=== PATIENT | female | born 1965 | race Caucasian/White ===

== ENCOUNTER 2019-10-14 09:45 | Emergency (ER) | payer MEDICAID, OTHER ==
[~2019-10-14] VITALS: Ht 170.2 cm; Wt 112.0 kg
[~2019-10-14 09:45] MED LIST: CLON-527 PO; ESOM20CA PO; LEVO100T46 PO; LISI-600 PO; PANT40TA39 PO; ZOF4T PO; ZOLP5TAB8 PO
--- NOTE | 2019-10-14 10:03 | NUR ---
received patient to ER overflow
--- NOTE | 2019-10-14 10:37 | NUR ---
MD at the bedside, patient stating all guns have been removed from the home and that she has been feeling suicidal for a few days
[2019-10-14 10:58] LABS: BASOPHILS # (AUTO) 0.1 X10'3 (0-0.2); BASOPHILS % (AUTO) 1.5 % (0-1); EOSINOPHILS # (AUTO) 0.1 X10'3 (0-0.9); EOSINOPHILS % (AUTO) 1.3 % (0-6); HEMATOCRIT 42.3 % (35.0-45.0); HEMOGLOBIN 14.4 g/dl (12.0-16.0); LYMPHOCYTES # (AUTO) 1.6 X10'3 (1.1-4.8); LYMPHOCYTES % (AUTO) 22.9 % (21-51); MEAN CORPUSCULAR HEMOGLOBIN 29.9 PG (27.0-31.0); MEAN CORPUSCULAR VOLUME 88.1 FL (78-98); MONOCYTES # (AUTO) 0.4 X10'3 (0-0.9); MONOCYTES % (AUTO) 5.7 % (2-12); NEUTROPHILS # (AUTO) 4.9 X10'3 (1.8-7.7); NEUTROPHILS % (AUTO) 68.6 % (42-75); PLATELET COUNT 380 X10'3 (140-440); RED BLOOD COUNT 4.81 X10'6 (4.20-5.60); RED CELL DISTRIBUTION WIDTH 13.5 % (11.5-14.5); WHITE BLOOD COUNT 7.1 X10'3 (4.5-11.0)
[2019-10-14] MEDS ORDERED: LORazepam 1 MG tablet PO ONE ×2 (11:05→19:20)
[2019-10-14 11:10] LABS: CLARITY,URINE CLOUDY (Clear); COLOR,URINE YELLOW (Yellow); GLUCOSE, URINE NEGATIVE (Neg); KETONES,URINE NEGATIVE (Neg); LEUKOCYTE ESTERASE ,URINE NEGATIVE (Neg); NITRITES, URINE NEGATIVE (Neg); OCCULT BLOOD,URINE TRACE-INTACT (Neg); PROTEIN,URINE NEGATIVE (Neg); UROBILINOGEN,URINE 0.2 E.U/dL (0.2-1.0)
[2019-10-14 11:12] LABS: URINE AMPHETAMINE SCREEN NEGATIVE (Neg); URINE BARBITUATE SCREEN NEGATIVE (Neg); URINE BENZODIAZEPINES SCREEN NEGATIVE (Neg); URINE CANNABINOID SCREEN NEGATIVE (Neg); URINE COCAINE SCREEN NEGATIVE (Neg); URINE METHADONE SCREEN NEGATIVE (Neg); URINE OPIATE SCREEN NEGATIVE (Neg); URINE PHENCYCLIDINE SCREEN NEGATIVE (Neg)
[2019-10-14 11:14] LABS: UA COLLECTION TYPE CLN CATCH MIDSTREAM
[2019-10-14 11:15] LABS: MUCUS STRANDS MANY /LPF (Neg); SQUAMOUS EPITHELIAL CELL,UR MANY /LPF (FEW)
[2019-10-14 11:15] LABS: ALANINE AMINOTRANSFERASE 109 U/L (12-78); ALBUMIN 4.1 G/DL (3.4-5.0); ALBUMIN/GLOBULIN RATIO 1.3 (1.1-1.5); ALKALINE PHOSPHATASE 111 IU/L (46-116); ANION GAP 6 (8-16); ASPARTATE AMINO TRANSFERASE 43 U/L (10-37); BILIRUBIN,TOTAL 0.5 MG/DL (0.1-1.0); BLOOD UREA NITROGEN 12 MG/DL (7-18); CALCIUM 9.6 MG/DL (8.5-10.1); CHLORIDE 108 MMOL/L (99-107); CREATININE 1.09 MG/DL (0.40-0.90); GLUCOSE 96 MG/DL (70-104); POTASSIUM 4.1 MMOL/L (3.5-5.1); SODIUM 140 MMOL/L (135-145); TOTAL CARBON DIOXIDE 26.3 MMOL/L (24-32); TOTAL PROTEIN 7.3 G/DL (6.4-8.2); eGFR 53 ML/MIN
[2019-10-14 11:16] LABS: BACTERIA,URINE 3+ /HPF (Neg); RBC,URINE 0-2 /HPF (0-2); WBC,URINE 0-4 /HPF (0-4)
--- NOTE | 2019-10-14 12:51 | NUR ---
SENT PACKET TO [facility]
--- NOTE | 2019-10-14 13:00 | NUR ---
pt resting no change
--- NOTE | 2019-10-14 17:55 | NUR ---
[facility] and will be picked up around 1944
--- NOTE | 2019-10-14 19:19 | NUR ---
Patient is awake and well oriented. Mid fowlers in bed, in view from nursing station. Patient speaks is a soft voice, she is complaing of much anxiety and depression. Patient answers questions directly and is cooperative with staff. Patient will be transported to [facility] in [place] at around 1745 hours. This group underwriter spoke with an ED PA, an order was recieved for Ativan 1mg PO. Patient is medication compliant.
[2019-10-14] MEDS ORDERED: acetaminophen 325mg tablet PO ONE (20:00)
--- NOTE | 2019-10-14 20:02 | NUR ---
[facility] is here to take patient to [facility] in [place]. This residential mortgage underwriter was checking vital signs. Patient noted to have Temp of 99.9. Dr. Baker, ER MD advised. Patient was given APAP 650 mg PO. Patient was medication compliant. Security arrived and patient was ambulated to transport car. Patient was cooperative.
[2019-10-14 20:05] VITALS: BP 18/128
== END 2019-10-14 20:10 | disposition home or self-care (01) ==
LOC: ER 09:46
DX: R45.851 Suicidal ideations (principal); R79.1 Abnormal coagulation profile; F31.9 Bipolar disorder, unspecified; Z90.49 Acquired absence of other specified parts of digestive tract; Z90.710 Acquired absence of both cervix and uterus; Z79.899 Other long term (current) drug therapy
CPT/HCPCS: 36415; 80053; 80305; 81001; 84443; 85025; 99285

== ENCOUNTER 2019-10-29 09:17 | Emergency (ER) | payer OTHER ==
[~2019-10-29] VITALS: Ht 170.2 cm; Wt 111.0 kg
--- NOTE | 2019-10-29 10:00 | NUR ---
intake completed. pt placed in green scrubs. med rec completed from dr. martinez office. pt had recent med changes. pt's md stopped Latuda and started invega.
[2019-10-29] MEDS ORDERED: PALI6TAB PO (10:26)
[2019-10-29] MEDS ORDERED: LIT300C PO (10:28)
[2019-10-29] MEDS ORDERED: OLAN5TAB3 PO (10:59)
--- NOTE | 2019-10-29 11:00 | NUR ---
pt is resting in her room
[2019-10-29 11:53] LABS: CLARITY,URINE CLOUDY (Clear); COLOR,URINE YELLOW (Yellow); GLUCOSE, URINE NEGATIVE (Neg); KETONES,URINE NEGATIVE (Neg); LEUKOCYTE ESTERASE ,URINE NEGATIVE (Neg); NITRITES, URINE NEGATIVE (Neg); OCCULT BLOOD,URINE TRACE-INTACT (Neg); PROTEIN,URINE NEGATIVE (Neg)
[2019-10-29 11:57] LABS: UA COLLECTION TYPE CLN CATCH MIDSTREAM
[2019-10-29 11:59] LABS: URINE AMPHETAMINE SCREEN NEGATIVE (Neg); URINE BARBITUATE SCREEN NEGATIVE (Neg); URINE BENZODIAZEPINES SCREEN NEGATIVE (Neg); URINE CANNABINOID SCREEN NEGATIVE (Neg); URINE COCAINE SCREEN NEGATIVE (Neg); URINE METHADONE SCREEN NEGATIVE (Neg); URINE OPIATE SCREEN NEGATIVE (Neg); URINE PHENCYCLIDINE SCREEN NEGATIVE (Neg)
--- NOTE | 2019-10-29 12:00 | NUR ---
pt is sleeping in her room
[2019-10-29 12:01] LABS: SQUAMOUS EPITHELIAL CELL,UR MANY /LPF (FEW)
[2019-10-29 12:02] LABS: BACTERIA,URINE 2+ /HPF (Neg); RBC,URINE 0-2 /HPF (0-2); WBC,URINE 0-4 /HPF (0-4)
[2019-10-29 12:31] LABS: BASOPHILS # (AUTO) 0.1 X10'3 (0-0.2); BASOPHILS % (AUTO) 1.1 % (0-1); EOSINOPHILS # (AUTO) 0.1 X10'3 (0-0.9); EOSINOPHILS % (AUTO) 1.2 % (0-6); HEMATOCRIT 40.2 % (35.0-45.0); HEMOGLOBIN 13.5 g/dl (12.0-16.0); LYMPHOCYTES # (AUTO) 1.9 X10'3 (1.1-4.8); LYMPHOCYTES % (AUTO) 31.8 % (21-51); MEAN CORPUSCULAR HEMOGLOBIN 29.9 PG (27.0-31.0); MEAN CORPUSCULAR HGB CONC 33.7 g/dL (33.0-36.5); MEAN CORPUSCULAR VOLUME 88.8 FL (78-98); MEAN PLATELET VOLUME 7.1 FL (7.4-10.4); MONOCYTES # (AUTO) 0.5 X10'3 (0-0.9); MONOCYTES % (AUTO) 7.4 % (2-12); NEUTROPHILS # (AUTO) 3.6 X10'3 (1.8-7.7); NEUTROPHILS % (AUTO) 58.5 % (42-75); PLATELET COUNT 332 X10'3 (140-440); RED BLOOD COUNT 4.52 X10'6 (4.20-5.60); RED CELL DISTRIBUTION WIDTH 13.5 % (11.5-14.5); WHITE BLOOD COUNT 6.1 X10'3 (4.5-11.0)
[2019-10-29 12:43] LABS: ALANINE AMINOTRANSFERASE 123 U/L (12-78); ALBUMIN 3.9 G/DL (3.4-5.0); ALBUMIN/GLOBULIN RATIO 1.3 (1.1-1.5); ALKALINE PHOSPHATASE 83 IU/L (46-116); ANION GAP 8 (8-16); ASPARTATE AMINO TRANSFERASE 55 U/L (10-37); BILIRUBIN,TOTAL 0.7 MG/DL (0.1-1.0); BLOOD UREA NITROGEN 14 MG/DL (7-18); BUN/CREATININE RATIO 12.5 (6.6-38.0); CALCIUM 9.6 MG/DL (8.5-10.1); CHLORIDE 109 MMOL/L (99-107); CREATININE 1.12 MG/DL (0.40-0.90); GLUCOSE 96 MG/DL (70-104); SODIUM 142 MMOL/L (135-145); TOTAL PROTEIN 6.8 G/DL (6.4-8.2); eGFR 51 ML/MIN
[2019-10-29 12:53] LABS: ETHANOL < 0.010 GM/DL (0.0-0.010)
--- NOTE | 2019-10-29 13:13 | NUR ---
pt is refusing to eat her lunch. she says she is on a keto diet and does not eat processed food. rn called kitchen and they are going to send up a salad
[2019-10-29] MEDS ORDERED: ondansetron 4mg rapidly disintigrating tab PO PRN (14:00)
--- NOTE | 2019-10-29 14:27 | NUR ---
FAXED PACKET [facility]
[2019-10-29] MEDS ORDERED: OLANZapine 2.5MG tablet PO STA (14:31)
--- NOTE | 2019-10-29 16:00 | NUR ---
PT IS RESTING IN BED. [facility] INTERVIEWING PT
--- NOTE | 2019-10-29 20:00 | NUR ---
One to one with the patient to assess severity of depressive symptoms and self harm risk. THe patient appeared to have a flat affect. Her verbal responses were monotone. She stated that she felt she had very low energy levels. When asked to describe her mood she stated, "blah" When asked if she felt suicidal she replied, "I don't know" She stated that she does want to live then added, "My brain doesn't know that yet" She stated that she does have things in her life that she wants to live for including her kids, her and a planned move to [place]. She stated that she has had poor concentration and focus. She reports high anxiety. She reports visual hallucinations stating that there was mold on the ceiling and it was turning green and the soap dispenser looked like her 's head. She reports voices that are constantly nagging "You're going to . You're going to "
[2019-10-29] MEDS: lithium carbonate 300mg SR tablet (LithoBID) PO SCH (20:28)
[2019-10-29] MEDS ORDERED: zolpidem 5mg tablet PO SCH (21:00)
[2019-10-29] MEDS ORDERED: clonazePAM 1mg tablet PO ONE (21:55)
--- NOTE | 2019-10-29 22:34 | NUR ---
The patient was asking about her klonopin that she has been taking at home. Dr. Sofia called and gave order for one time dose for allie.
--- NOTE | 2019-10-29 23:48 | NUR ---
The patient appears to be sleeping.
--- NOTE | 2019-10-30 02:44 | NUR ---
The patient appears to be sleeping
--- NOTE | 2019-10-30 04:15 | NUR ---
The patient appears to be sleeping
[2019-10-30 05:55] VITALS: BP_DIAS 69
[2019-10-30] MEDS ORDERED: pantoprazole 40mg Tablet.DR PO SCH ×2 (07:30→08:00)
[2019-10-30] MEDS ORDERED: OLANZAPINE 5 MG TABLET PO SCH (08:00)
[2019-10-30] MEDS ORDERED: PALIPERIDONE 3 MG TAB.ER.24 PO SCH (08:00)
[2019-10-30] MEDS ORDERED: levoTHYROXINE 100mcg tablet PO SCH (08:00)
[2019-10-30] MEDS ORDERED: lisinopril 20mg tablet PO SCH (08:00)
--- NOTE | 2019-10-30 08:34 | NUR ---
Received phone call from [facility] Charge Nurse, Soham, and patient has been accepted to the unit. Patient is currently resting peacefully in bed with eyes open. No distress observed.
[2019-10-30] MEDS: lithium carbonate 300mg SR tablet (LithoBID) PO SCH (08:47)
[2019-10-30 08:48] VITALS: BP_SYST 105
--- NOTE | 2019-10-30 10:03 | NUR ---
Received call from [facility] unit tech who states that they will come transfer patient after visitation on [facility] around 1100.
[2019-10-30] MEDS ORDERED: CLON-368 PO (12:29)
[2019-10-30] MEDS ORDERED: LITH300C PO (12:29)
[2019-10-30] MEDS ORDERED: LAMO25TA5 PO (12:29)
[2019-10-30] MEDS ORDERED: LEVO100T9 PO (12:29)
[2019-10-30] MEDS ORDERED: ZOLP10TA PO (12:29)
== END 2019-10-30 11:30 ==
LOC: ER 09:18
DX: R45.851 Suicidal ideations (principal); F31.9 Bipolar disorder, unspecified; Z90.49 Acquired absence of other specified parts of digestive tract; Z90.710 Acquired absence of both cervix and uterus; Z98.890 Other specified postprocedural states; Z79.899 Other long term (current) drug therapy
CPT/HCPCS: 26605; 36415; 80053; 80305; 80320; 81001; 85025; 99285

== ENCOUNTER 2022-11-23 10:42 | Emergency (ER) | payer MEDICAID, MEDICARE ==
[~2022-11-23] VITALS: Ht 170.2 cm; Wt 113.6 kg
[~2022-11-23 10:42] MED LIST changes: +CLON-368 PO; -CLON-527 PO; -ESOM20CA PO; +LAMO25TA5 PO; -LEVO100T46 PO; +LEVO100T9 PO; -LISI-600 PO; +LIT300C PO; +OLAN5TAB75 PO; +PALI6TAB6 PO; -PANT40TA39 PO; +PANT40TA54 PO; -ZOF4T PO; +ZOLP10TA PO; -ZOLP5TAB8 PO
[2022-11-23 12:43] LABS: BASOPHILS # (AUTO) 0.1 X10'3 (0-0.2); BASOPHILS % (AUTO) 1.2 % (0-1); EOSINOPHILS % (AUTO) 0.6 % (0-6); HEMATOCRIT 45.8 % (35.0-45.0); HEMOGLOBIN 15.3 g/dl (12.0-16.0); LYMPHOCYTES # (AUTO) 2.3 X10'3 (1.1-4.8); LYMPHOCYTES % (AUTO) 28.7 % (21-51); MEAN CORPUSCULAR HEMOGLOBIN 29.9 PG (27.0-31.0); MEAN CORPUSCULAR HGB CONC 33.4 g/dL (33.0-36.5); MEAN CORPUSCULAR VOLUME 89.5 FL (78-98); MEAN PLATELET VOLUME 7.1 FL (7.4-10.4); MONOCYTES # (AUTO) 0.7 X10'3 (0-0.9); MONOCYTES % (AUTO) 8.9 % (2-12); NEUTROPHILS # (AUTO) 4.9 X10'3 (1.8-7.7); NEUTROPHILS % (AUTO) 60.6 % (42-75); PLATELET COUNT 370 X10'3 (140-440); RED BLOOD COUNT 5.11 X10'6 (4.20-5.60); RED CELL DISTRIBUTION WIDTH 13.4 % (11.5-14.5)
[2022-11-23 14:04] LABS: GLUCOSE 94 MG/DL (70-104); POTASSIUM 4.6 MMOL/L (3.5-5.1); SODIUM 139 MMOL/L (135-145)
[2022-11-23 14:05] LABS: ALANINE AMINOTRANSFERASE 116 U/L (12-78); ALBUMIN 4.3 G/DL (3.4-5.0); ALBUMIN/GLOBULIN RATIO 1.2 (1.1-1.5); ALKALINE PHOSPHATASE 177 IU/L (46-116); ANION GAP 8 (8-16); ASPARTATE AMINO TRANSFERASE 62 U/L (10-37); BILIRUBIN,TOTAL 0.6 MG/DL (0.1-1.0); BLOOD UREA NITROGEN 13 MG/DL (7-18); BUN/CREATININE RATIO 12.3 (6.6-38.0); CALCIUM 9.6 MG/DL (8.5-10.1); CHLORIDE 105 MMOL/L (99-107); CREATININE 1.06 MG/DL (0.40-0.90); LIPASE 101 U/L (73-393); TOTAL PROTEIN 7.8 G/DL (6.4-8.2); eGFR 54 ML/MIN
[2022-11-23 20:20] VITALS: BP 159/112
[2022-11-23] MEDS ORDERED: metoclopramide 5 mg/ml inj IV ONE (21:20)
[2022-11-23] MEDS ORDERED: normal saline 1000ML IV soln IV ONE (21:20)
[2022-11-23] MEDS ORDERED: METO-292 PO (22:50)
[2022-11-26 06:46] LABS: HEPATITIS C VIRUS ANTIBODY Non Reactive (Non Reactive)
== END 2022-11-24 00:47 | disposition home or self-care (01) ==
LOC: ER 10:42
DX: K75.9 Inflammatory liver disease, unspecified (principal); K21.9 Gastro-esophageal reflux disease without esophagitis; F31.9 Bipolar disorder, unspecified; Z90.49 Acquired absence of other specified parts of digestive tract; Z90.710 Acquired absence of both cervix and uterus; Z79.899 Other long term (current) drug therapy
CPT/HCPCS: 36415; 76700; 80053; 83690; 85025; 86803; 96361; 96374; 99285; J2765; J7030; 87522